=== PATIENT | female | born 1985 | race Caucasian/White ===

== ENCOUNTER 2018-02-09 17:15 | Emergency (ER) | payer MEDICAID ==
[~2018-02-09] VITALS: Ht 154.9 cm; Wt 70.5 kg
[2018-02-09 19:37] VITALS: BP 116/74
[2018-02-09] MEDS ORDERED: BENZOCAINE/MENTHOL LOZENGE PO ONE (19:45)
[2018-02-09] MEDS ORDERED: CARBAMIDE PEROXIDE 6.5% 15 ML OTIC SOLUTION AD ONE (20:15)
== END 2018-02-09 21:10 | disposition home or self-care (01) ==
LOC: EMS 17:17
DX: H61.21 Impacted cerumen, right ear (principal); J02.8 Acute pharyngitis due to other specified organisms
CPT/HCPCS: 69209; 87430; 99283

== ENCOUNTER 2018-10-31 08:51 | Emergency (ER) | payer MEDICAID ==
[~2018-10-31] VITALS: Ht 154.9 cm; Wt 70.5 kg
[2018-10-31 10:14] LABS: APPEARANCE,URINE CLOUDY (CLEAR); BILIRUBIN,URINE NEGATIVE (NEGATIVE); GLUCOSE, URINE (UA) NEGATIVE (NEGATIVE); KETONES,URINE NEGATIVE (NEGATIVE); LEUKOCYTE ESTERASE ,URINE MODERATE (NEGATIVE); NITRATE,URINE NEGATIVE (NEGATIVE); OCCULT BLOOD,URINE NEGATIVE (NEGATIVE); PH,URINE 6.5 (5.0-8.0); PROTEIN,URINE NEGATIVE (NEGATIVE); UROBILINOGEN,URINE 0.2 mg/dL (<=1.0)
[2018-10-31 10:37] LABS: BACTERIA,URINE Rare /HPF (None Seen); SQUAMOUS EPITHELIAL CELL,UR Moderate /LPF (None Seen)
[2018-10-31 11:56] VITALS: BP 103/65
[2018-10-31] MEDS ORDERED: PHENAZOPYRIDINE HCL 100 MG TABLET PO ONE (12:00)
[2018-10-31] MEDS ORDERED: CEPHALEXIN MONOHYDRATE 500 MG CAPSULE PO ONE (12:00)
== END 2018-10-31 12:16 | disposition home or self-care (01) ==
LOC: EMS 08:53
DX: N39.0 Urinary tract infection, site not specified (principal)
CPT/HCPCS: 87086

== ENCOUNTER 2019-01-21 21:17 | Emergency (ER) | payer MEDICAID ==
[~2019-01-21] VITALS: Ht 154.9 cm; Wt 75.0 kg
[2019-01-21 21:45] VITALS: BP 110/77
[2019-01-21] MEDS ORDERED: IBUPROFEN 600 MG TABLET PO ONE (21:45)
== END 2019-01-21 22:30 | disposition home or self-care (01) ==
LOC: EMS 21:18
DX: J02.8 Acute pharyngitis due to other specified organisms (principal); B97.89 Other viral agents as the cause of diseases classified elsewhere
CPT/HCPCS: 87430